=== PATIENT | male | born 1970 | race Two or more races ===

== ENCOUNTER 2018-02-02 07:33 | Emergency (ER) | payer OTHER ==
[~2018-02-02] VITALS: Ht 172.7 cm; Wt 81.6 kg
[2018-02-02 07:43] VITALS: BP 118/74
[2018-02-02] MEDS ORDERED: Methocarbamol 750mg tab ORAL ONE (08:00)
[2018-02-02] MEDS ORDERED: Morphine Sulfate 4mg/ml Inj (IV/IM USE ONLY) IVP ONE (08:00)
[2018-02-02 08:06] LABS: BASOPHILS % (AUTO) 0.8 % (0.0-2.0); EOSINOPHILS % (AUTO) 1.6 % (0.0-3.0); HEMATOCRIT 42.2 % (42.0-52.0); HEMOGLOBIN 14.5 G/DL (14.2-18.0); LYMPHOCYTES % (AUTO) 18.9 % (20.0-45.0); MEAN CORPUSCULAR VOLUME 96 FL (80-99); MONOCYTES % (AUTO) 7.1 % (1.0-10.0); NEUTROPHILS % (AUTO) 71.6 % (45.0-75.0); PLATELET COUNT 282 K/UL (150-450); RED BLOOD COUNT 4.39 M/UL (4.70-6.10); RED CELL DISTRIBUTION WIDTH 11.1 % (11.6-14.8); WHITE BLOOD COUNT 12.2 K/UL (4.8-10.8)
--- NOTE | 2018-02-02 08:11 | Emergency Room Report ---
History of Present Illness General Chief Complaint: Back Pain-No Injury Source: Patient Present Illness HPI 47-year-old male presents ED for evaluation. Brought in by EMS. States that around 4:00 this morning he started to feel pain in his upper upper back between his shoulder blades. Patient states he got ready and went to work. States that once he got to work he started to feel dizzy and lightheaded. Per EMS patient was diaphoretic. States pain was sharp, 8 out of 10, radiating around to his chest. Denies chest pain or shortness of breath. Denies fevers or chills. Denies cough. Denies sick contacts or recent travel. Denies drug use. Admits to daily alcohol use. No other aggravating relieving factors. Denies any other associated symptoms Allergies: Coded Allergies: No Known Allergies (Unverified , 02/02/18) Patient History Past Medical History: none Past Surgical History: none Pertinent Family History: none Social History: Reports: alcohol use; Denies: smoking, drug use Immunizations: UTD Reviewed Nursing Documentation: PMH: Agreed; PSxH: Agreed Nursing Documentation-PMH Past Medical History: No History, Except For Review of Systems All Other Systems: negative except mentioned in HPI Physical Exam Vital Signs Date Time Temp Pulse Resp B/P (MAP) Pulse Ox O2 Delivery O2 Flow Rate FiO2 02/02/18 07:33 96.1 74 14 122/64 98 Room Air Sp02 EP Interpretation: reviewed, normal General Appearance: no apparent distress, alert, GCS 15, non-toxic Head: normocephalic Eyes: bilateral eye normal inspection, bilateral eye PERRL ENT: normal ENT inspection Neck: normal inspection Respiratory: lungs clear, normal breath sounds, speaking full sentences, other - reproducible anterior rib pain bilaterally Cardiovascular #1: regular rate, rhythm, no edema Gastrointestinal: normal bowel sounds, non tender, soft, non-distended, no guarding, no rebound Rectal: deferred Genitourinary: no CVA tenderness, no vertebral tenderness Musculoskeletal: normal inspection, tender - upper back Neurologic: alert, oriented x3, responsive, motor strength/tone normal, sensory intact, speech normal Psychiatric: normal inspection Skin: normal inspection Lymphatic: normal inspection Medical Decision Making Diagnostic Impression: Primary Impression: Dizziness Additional Impression: Chest pain Qualified Codes: R07.9 - Chest pain, unspecified ER Course Hospital Course 47 yo M presents with diaphoresis, dizziness, back pain radating to chest Differential diagnoses include: NH/unstable angina, contusion, muscle strain, PTX, rib fracture Clinical course Patient placed on stretcher. on plant specialist. After initial history and physical I ordered labs, EKG, chest x-ray, pain meds labs reviewed- minimal leukocytosis, hemoglobin/hematocrit stable, BUN/Cr elevated, trop 0.017, EKG - NSR, no acute ischemic changes interpreted by me Chest x-ray- pulmonary congestion ? cardiomegaly CTA Chest - no evidence of PE, some atelctasis vs conslidation Antibiotics given. because of insurance patient will be transferred to [facility]. I feel this is a highly complex case requiring extensive working including EKG/Rhythm strip, Xray/CT/US, Blood/urine lab work, repeat exams while in ED, and administration of strong opiates/narcotics for pain control, admission to hospital or close patient follow up. Diagnosis - dizziness, chest pain transferred to [place] in serious condition Labs Test 02/02/18 07:40 02/02/18 07:45 02/02/18 08:32 White Blood Count 12.2 K/UL (4.8-10.8) Red Blood Count 4.39 M/UL (4.70-6.10) Hemoglobin 14.5 G/DL (14.2-18.0) Hematocrit 42.2 % (42.0-52.0) Mean Corpuscular Volume 96 FL (80-99) Mean Corpuscular Hemoglobin 33.1 PG (27.0-31.0) Mean Corpuscular Hemoglobin Concent 34.5 G/DL (32.0-36.0) Red Cell Distribution Width 11.1 % (11.6-14.8) Platelet Count 282 K/UL (150-450) Mean Platelet Volume 6.0 FL (6.5-10.1) Neutrophils (%) (Auto) 71.6 % (45.0-75.0) Lymphocytes (%) (Auto) 18.9 % (20.0-45.0) Monocytes (%) (Auto) 7.1 % (1.0-10.0) Eosinophils (%) (Auto) 1.6 % (0.0-3.0) Basophils (%) (Auto) 0.8 % (0.0-2.0) Sodium Level 137 MMOL/L (136-145) Potassium Level 4.5 MMOL/L (3.5-5.1) Chloride Level 104 MMOL/L (98-107) Carbon Dioxide Level 27 MMOL/L (21-32) Anion Gap 6 mmol/L (5-15) Blood Urea Nitrogen 18 mg/dL (7-18) Creatinine 1.0 MG/DL (0.55-1.30) Estimat Glomerular Filtration Rate > 60 mL/min (>60) Glucose Level 169 MG/DL (74-106) Calcium Level 8.5 MG/DL (8.5-10.1) Total Bilirubin 0.8 MG/DL (0.2-1.0) Aspartate Amino Transf (AST/SGOT) 20 U/L (15-37) Alanine Aminotransferase (ALT/SGPT) 23 U/L (12-78) Alkaline Phosphatase 66 U/L (46-116) Total Creatine Kinase 189 U/L (26-308) Creatine Kinase MB 1.8 NG/ML (0.0-3.6) Creatine Kinase MB Relative Index 0.9 Troponin I 0.017 ng/mL (0.000-0.056) Pro-B-Type Natriuretic Peptide 8 pg/mL (0-125) Total Protein 7.3 G/DL (6.4-8.2) Albumin 3.4 G/DL (3.4-5.0) Globulin 3.9 g/dL Albumin/Globulin Ratio 0.9 (1.0-2.7) Salicylates Level 0.6 ug/mL (2.8-20) Acetaminophen Level < 2 MCG/ML (10-30) Serum Alcohol < 3 mg/dL Prothrombin Time 11.2 SEC (9.30-11.50) Prothromb Time International Ratio 1.1 (0.9-1.1) Activated Partial Thromboplast Time 20 SEC (23-33) Urine Opiates Screen Positive (NEGATIVE) Urine Barbiturates Screen Negative (NEGATIVE) Phencyclidine (PCP) Screen Negative (NEGATIVE) Urine Amphetamines Screen Negative (NEGATIVE) Urine Benzodiazepines Screen Negative (NEGATIVE) Urine Cocaine Screen Negative (NEGATIVE) Urine Marijuana (THC) Screen Negative (NEGATIVE) EKG Diagnostic Results Rate: normal Rhythm: NSR ST Segments: no acute changes ASA given to the pt in ED: No Rhythm Strip Diag. Results EP Interpretation: yes Rhythm: NSR, no PVC's, no ectopy Chest X-Ray Diagnostic Results Chest X-Ray Diagnostic Results : Chest X-Ray Ordered: Yes # of Views/Limited/Complete: 1 View Indication: Chest Pain EP Interpretation: Yes Interpretation: no pneumothorax, other - interstitial congestion Impression: Other - cardiomegaly Electronically Signed by: Electronically signed by Israel Chin MD CT/MRI/US Diagnostic Results CT/MRI/US Diagnostic Results : Imaging Test Ordered: CTA Chest Impression no PE, bialteral posterior atelectasis/consolidation Last Vital Signs Date Time Temp Pulse Resp B/P (MAP) Pulse Ox O2 Delivery O2 Flow Rate FiO2 02/02/18 07:43 96.1 64 25 118/74 98 Room Air Status: improved Disposition: XFER [facility] Condition: Serious Referrals: NOT CHOSEN IPA/,REFERRING (PCP) Israel Chin MD Feb 02, 2018 08:11
[2018-02-02 08:20] LABS: ANION GAP 6 mmol/L (5-15); BLOOD UREA NITROGEN 18 mg/dL (7-18); CALCIUM 8.5 MG/DL (8.5-10.1); CARBON DIOXIDE 27 MMOL/L (21-32); CHLORIDE 104 MMOL/L (98-107); POTASSIUM 4.5 MMOL/L (3.5-5.1); SODIUM 137 MMOL/L (136-145)
[2018-02-02 08:33] LABS: ALANINE AMINOTRANSFERASE 23 U/L (12-78); ALBUMIN 3.4 G/DL (3.4-5.0); ALBUMIN/GLOBULIN RATIO 0.9 (1.0-2.7); ALKALINE PHOSPHATASE 66 U/L (46-116); ASPARTATE AMINO TRANSFERASE 20 U/L (15-37); BILIRUBIN,TOTAL 0.8 MG/DL (0.2-1.0); CKMB 1.8 NG/ML (0.0-3.6); CREATINE KINASE 189 U/L (26-308)
--- NOTE | 2018-02-02 09:07 | Diagnostic Imaging Report ---
Indication: Chest pain Technique: One view of the chest Comparison: none Findings: Suboptimal inspiration. Heart size appears borderline enlarged, possibly exaggerated by incomplete inspiration. There is mild interstitial prominence and central bronchial wall thickening. No focal airspace consolidation. No effusions. The aorta is elongated and tortuous Impression: Mild central interstitial prominence and bronchial wall thickening, likely on the basis of bronchitis, mild interstitial congestion not completely excludable. Hypoventilatory exam Equivocal borderline cardiomegaly Findings previously discussed by phone with Dr. Chin in the emergency room
[2018-02-02] MEDS ORDERED: Isovue-370 150ml vial INJ PRN (09:15)
[2018-02-02 09:30] LABS: INR 1.1 (0.9-1.1)
[2018-02-02 10:00] VITALS: BP 108/63
--- NOTE | 2018-02-02 10:23 | Diagnostic Imaging Report ---
ndication: Chest pain, shortness of breath Technique: IV administration nonionic contrast. Spiral acquisitions obtained from the lung bases to the lung apices. Multiplanar and 3-D reconstructions were generated. Total dose length product 913.17 mGycm. CTDIvol(s) 26.39 mGy. Dose reduction achieved using automated exposure control Comparison: None. Reference made to chest radiograph earlier the same day Findings: Pulmonary arterial opacification is adequate. No intraluminal filling defects or other findings to suggest acute pulmonary embolus demonstrated. Normal caliber pulmonary arteries. No evidence of right ventricular dilatation. No evidence of thoracic aortic aneurysm or dissection. The lungs demonstrate posterior dependent atelectatic changes as well as likely consolidative changes in the lower lobes bilaterally. No effusions. No masses. The included portions of the thyroid are unremarkable. The heart size is normal. No pericardial effusion. Unremarkable esophagus. No mediastinal or hilar mass or adenopathy. No axillary or chest wall mass or adenopathy. Included portions of the upper abdomen are remarkable for dilatation of the common bile duct, which measures up to 12 mm in diameter. The distal common bile duct is not visualized. Impression: Negative for evidence of acute pulmonary embolus Bilateral posterior dependent pulmonary atelectatic changes and consolidation Dilated common bile duct, etiology/significance uncertain. Correlate with liver function tests The CT scanner at [facility] is accredited by the [employer] and the scans are performed using protocols designed to limit radiation exposure to as low as reasonably achievable to attain images of sufficient resolution adequate for diagnostic evaluation.
[2018-02-02] MEDS ORDERED: IBUPROFEN600 MG ORAL (10:31)
[2018-02-02] MEDS ORDERED: COSOPT EYE DROP10 M1 OP (10:31)
[2018-02-02] MEDS ORDERED: XALATAN2.5 ML BOTH EYES (10:31)
[2018-02-02] MEDS ORDERED: VENTOLIN HFA18 GM INH (10:31)
[2018-02-02] MEDS ORDERED: ALDARA0.25 GM TOPIC (10:31)
[2018-02-02 11:15] VITALS: BP 102/63
[2018-02-02 11:45] VITALS: BP 102/63
--- NOTE | 2018-02-04 16:40 | Cardiology Report ---
APPROVED REPORT EKG Measurement Heart [id number] Normal sinus rhythm Inferior infarct, age undetermined Abnormal ECG
== END 2018-02-02 12:00 | disposition short-term general hospital (02) ==
LOC: EDBD 07:33 → EMR 07:45
DX: R07.9 Chest pain, unspecified (principal); R42 Dizziness and giddiness; R61 Generalized hyperhidrosis; M54.89 Other dorsalgia
CPT/HCPCS: 36415; 71045; 71275; 80053; 80307; 82550; 82553; 83880; 84484; 85025; 85610; 85730; 93005; 96361; 96365; 96375; 99285; G0480; J1956; J2270; Q9967; 80329